=== PATIENT | male | born 1955 | race Caucasian/White ===

== ENCOUNTER 2016-09-18 00:12 | Emergency (ER) | payer OTHER ==
[2016-09-18] MEDS ORDERED: Sodium Chloride 0.9% 5 ML Syringe FLUSH PRN (00:59)
[2016-09-18] MEDS ORDERED: Sodium Chloride 0.9% 1,000 ML IV ONE (00:59)
[2016-09-18] MEDS ORDERED: Famotidine 20 MG/2 ML SDV IVPUSH ONE (00:59)
[2016-09-18] MEDS ORDERED: diphenhydrAMINE 50 MG/ML SDV IVPUSH ONE (00:59)
[2016-09-18] MEDS ORDERED: methylPREDNISolone Sodium Succinate 125 MG/2 ML SDV IVPUSH ONE (00:59)
--- NOTE | 2016-09-18 01:12 | EDM.PDOC ---
ED HPI Allergic Reaction - General Chief Complaint: Allergic Reaction Stated Complaint: swollen lips Time Seen by Provider: 09/18/16 00:58 Source of Information: Reports: Patient History Limitations: Reports: No limitations - History of Present Illness INITIAL COMMENTS - FREE TEXT/NARRATIVE: PT STATES HE DEVELOPED TINGLING IN FACE AND NOTICED LOWER LIP WAS SWOLLEN EARLY THIS EVENING. SEEMS TO BE GETTING WORSE. 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 WAS WEARING HAT AND EYE PROTECTION AT THE TIME. DENIES SOB, THROAT CLOSING SENSATION, N/V, CP, RASH, OR SIMILAR SYMPTOMS IN PAST. Timing/Duration: Reports: Hour(s): Location, Skin: Reports: face Associated features: Reports: swelling Quality: Reports: Itching Severity: mild Known identified source: possible/maybe When: prior to symptom onset Place of Occurrence: work Associated Symptoms: Reports: no other symptoms. Denies: shortness of breath, cough, fever/chills, nausea/vomiting, rash Similar symptoms previously: no Improves with: Reports: None Worsens with: Reports: None Place of Occurrence: Reports: work Suspected Etiology: Reports: cleaning compound Recent Medical Care: no - Related Data Allergies/ADRs: Allergies Allergy/AdvReac Type Severity Reaction Status Date / Time Penicillins Allergy Nausea and Verified 09/18/16 01:12 Vomiting Home Meds: Home Meds Prednisone [IMW: predniSONE] 40 mg PO WITHBREAKFAST #6 tab 09/18/16 [Rx] ED ROS ALLERGIC REACTION - Review of Systems Review Of Systems: ROS reveals no pertinent complaints other than HPI. Constitutional: Reports: no symptoms HEENT: Reports: Other (LOWER LIP EDEMA). Denies: Throat pain, Throat swelling Respiratory: Denies: Shortness of Breath, Wheezing Cardiovascular: Reports: No symptoms Endocrine: Reports: no symptoms GI/Abdominal: Reports: No symptoms : Reports: no symptoms Musculoskeletal: Reports: no symptoms Skin: Reports: no symptoms Neurological: Reports: No Symptoms Psychiatric: Reports: No symptoms Hematologic/Lymphatic: Reports: no symptoms Immunologic: Reports: no symptoms ED EXAM GENERAL NO PERIP PULSE - Physical Exam Exam: See Below Exam Limited By: No limitations General Appearance: alert, WD/WN, no apparent distress Eye Exam: bilateral eye: normal inspection Ears: normal external exam Nose: normal inspection, normal mucosa, no blood Throat/Mouth: Normal oropharynx, No airway compromise, Inflammation (LOWER LIP) , Other (NO TONGUE EDEMA). No: Normal lips Head: atraumatic, normocephalic Neck: normal inspection, supple, non-tender. No: lymphadenopathy (L), lymphadenopathy (R) Respiratory/Chest: no respiratory distress, lungs clear, normal breath sounds, no accessory muscle use, other (NO STRIDER NOTED) Cardiovascular: regular rate, rhythm, no murmur GI/Abdominal: normal bowel sounds, soft, non tender Extremities: normal inspection, no pedal edema Neurological: alert, oriented, normal cognition Psychiatric: normal affect, normal mood Skin Exam: Warm, Dry, Intact, Normal color, No rash Lymphatic: no adenopathy Course - Orders/Labs/Meds Orders: Active Orders 24 hr Category Date Time Status Peripheral IV Care [RC] . DIRECTED Care 09/18/16 00:59 Active Sodium Chloride 0.9% [Normal Saline] 1,000 ml Med 09/18/16 00:59 Active IV .BOLUS Sodium Chloride 0.9% [Syrex Flush] Med 09/18/16 00:59 Active 5 ml FLUSH Q8HR PRN Peripheral IV Insertion Adult [OM.PC] Routine Oth 09/18/16 00:59 Ordered Medication Orders Sodium Chloride (Normal Saline) 1,000 mls @ 999 mls/hr IV .BOLUS ONE Stop: 09/18/16 01:59 Sodium Chloride (Syrex Flush) 5 ml FLUSH Q8HR PRN PRN Reason: Keep Vein Open Meds: Medications Generic Name Dose Route Start Last Admin Trade Name Freq PRN Reason Stop Dose Admin Sodium Chloride 1,000 mls @ 999 mls/hr 09/18/16 00:59 Normal Saline IV 09/18/16 01:59 .BOLUS ONE Sodium Chloride 5 ml 09/18/16 00:59 Syrex Flush FLUSH Q8HR PRN Keep Vein Open Discontinued Medications Generic Name Dose Route Start Last Admin Trade Name Freq PRN Reason Stop Dose Admin Diphenhydramine HCl 50 mg 09/18/16 00:59 Benadryl IVPUSH 09/18/16 01:00 ONETIME ONE Famotidine 20 mg 09/18/16 00:59 Pepcid IVPUSH 09/18/16 01:00 ONETIME ONE Methylprednisolone Sodium Succinate 125 mg 09/18/16 00:59 Solu-Medrol IVPUSH 09/18/16 01:00 ONETIME ONE - Re-Assessments/Exams Free Text/Narrative Re-Assessment/Exam: 09/18/16 02:13 PT AFEBRILE, NONTOXIC APPEARING, VSS, LIP SWELLING DECREASED, NO RASH OR STRIDOR , BBS CLEAR, FEELS BETTER. 09/18/16 02:16 Departure - Departure Time of Disposition: 02:14 Disposition: Home, Self-Care 01 Condition: good Clinical Impression: Allergic reaction to chemical substance Qualifiers: Encounter type: initial encounter Injury intent: accidental or unintentional Qualified Code(s): T65.91XA - Toxic effect of unspecified substance, accidental (unintentional), initial encounter Angio-edema Qualifiers: Encounter type: initial encounter Qualified Code(s): T78.3XXA - Angioneurotic edema, initial encounter Instructions: Angioedema, [id number] Forms: ED Department Discharge Additional Instructions: FOLLOW UP WITH PCP IN 1-2 DAYS. RETURN TO ER SOONER IF SYMPTOMS CONTINUE OR WORSEN - My Orders Last 24 Hours: My Active Orders 09/18/16 00:59 Peripheral IV Care [RC] . DIRECTED Sodium Chloride 0.9% [Normal Saline] 1,000 ml IV .BOLUS Sodium Chloride 0.9% [Syrex Flush] 5 ml FLUSH Q8HR PRN Peripheral IV Insertion Adult [OM.PC] Routine - Assessment/Plan Last 24 Hours: My Active Orders 09/18/16 00:59 Peripheral IV Care [RC] . DIRECTED Sodium Chloride 0.9% [Normal Saline] 1,000 ml IV .BOLUS Sodium Chloride 0.9% [Syrex Flush] 5 ml FLUSH Q8HR PRN Peripheral IV Insertion Adult [OM.PC] Routine
[2016-09-18 09:10] VITALS: BP 151/81
== END 2016-09-18 02:30 | disposition home or self-care (01) ==
LOC: KA.ED 00:12
DX: T78.3XXA Angioneurotic edema, initial encounter (principal); T65.91XA Toxic effect of unspecified substance, accidental (unintentional), initial encounter; Z88.0 Allergy status to penicillin
CPT/HCPCS: 96361; 96374; 96375; 99283; J1200; J2930; J7030; S0028

== ENCOUNTER 2017-10-23 13:36 | Emergency (ER) | payer OTHER ==
[2017-10-23 14:02] VITALS: BP 137/93
[2017-10-23] MEDS ORDERED: Lidocaine 1% 20 ML MDV ONE (14:20)
[2017-10-23] MEDS ORDERED: Lidocaine 2% with EPINEPHrine 1:200,000 20 ML SDV ONE (14:20)
[2017-10-23] MEDS ORDERED: Bacitracin/Neomycin/Polymyxin B Oint 0.9 GM U/D Packet ONE (14:21)
[2017-10-23] MEDS ORDERED: Diphtheria,Pertussis(Acell),Tetanus Vaccine 0.5 ML SDV IM ONE (14:30)
--- NOTE | 2017-10-23 14:35 | EDM.PDOC ---
ED HPI GENERAL MEDICAL PROBLEM - General Chief Complaint: Head Injury Stated Complaint: HEAD INJURY Time Seen by Provider: 10/23/17 14:30 Source of Information: Reports: Patient History Limitations: Reports: No Limitations - History of Present Illness INITIAL COMMENTS - FREE TEXT/NARRATIVE: Patient is a 62-year-old gentleman who presents to the emergency department this afternoon with a complaint of laceration to scalp. Patient states that he was working under equipment and accidentally struck head on corner of type. Patient states that he did not lose consciousness, and denies nausea, vomiting, blurry vision, on anticoagulation therapy, or has neck pain. Onset: Today Onset Date: 10/23/17 Onset Time: 13:30 Duration: Minutes: Location: Reports: Head Quality: Reports: Ache Severity: Mild Improves with: Reports: None Worsens with: Reports: None Context: Reports: Trauma Associated Symptoms: Reports: No Other Symptoms Head Pain Score (Numeric/FACES): 4 - Related Data Allergies Allergy/AdvReac Type Severity Reaction Status Date / Time Penicillins Allergy Nausea and Verified 10/23/17 14:05 Vomiting Home Meds: Home Meds Aspirin 81 mg PO DAILY 10/23/17 [History] Past Medical History HEENT History: Reports: Hard of Hearing, Impaired Vision Respiratory History: Reports: Asthma Musculoskeletal History: Reports: Arthritis, Back Pain, Chronic Dermatologic History: Reports: Other (See Below) Other Dermatologic History: head laceration - Past Surgical History HEENT Surgical History: Reports: None Respiratory Surgical History: Reports: None Social & Family History - Tobacco Use Smoking Status *Q: Never Smoker - Caffeine Use Caffeine Use: Reports: Coffee - Recreational Drug Use Recreational Drug Use: No ED ROS GENERAL - Review of Systems Review Of Systems: ROS reveals no pertinent complaints other than HPI. Constitutional: Reports: No Symptoms HEENT: Reports: Other (Scalp laceration) Respiratory: Reports: No Symptoms Cardiovascular: Reports: No Symptoms Endocrine: Reports: No Symptoms GI/Abdominal: Reports: No Symptoms : Reports: No Symptoms Musculoskeletal: Reports: No Symptoms Skin: Reports: Wound (Scalp laceration) Neurological: Reports: No Symptoms Psychiatric: Reports: No Symptoms Hematologic/Lymphatic: Reports: No Symptoms Immunologic: Reports: No Symptoms ED EXAM, HEAD INJURY - Physical Exam Exam: See Below Exam Limited By: No Limitations General Appearance: Alert, WD/WN, No Apparent Distress Head: Scalp Lacerations (5 cm linear without bogginess or depression). No: Scalp Hematoma, Active Bleeding, Valdes's Sign Nexus Criteria: No: Posterior, Midline Cervical Tenderness, Evidence of Intoxication, Altered Level of Consciousness, Focal Neurological Deficit, Painful Distraction Injuries Eyes: Bilateral Eye: Normal Inspection Ears: Normal External Exam, Normal Canal, Normal TMs Nose: Normal Inspection, No Blood Throat/Mouth: Normal Inspection, Normal Oropharynx, No Airway Compromise Neck: Non-Tender, Full Range of Motion, Normal Alignment, Normal Inspection Respiratory: No Respiratory Distress Back Exam: Normal Inspection Extremities: Normal Inspection Neurologic: No Motor/Sensory Deficits, Normal Mood/Affect, Oriented x 3 Skin: Normal Color, Warm/Dry - Huntington Coma Score Huntington Total: 15 ED LACERATION/WOUND & SILVESTRE PROC - Laceration/Wound Repair [place] Head Lac/wound length in cm: 5 Appearance: Superficial Distal NVT: Neuro & Vascular Intact Anesthetic Type: Local Local Anesthesia - Lidocaine (Xylocaine): 2% with EPI Local Anesthetic Volume: 2cc Skin Prep: Providone-Iodine (Betadine) Closed with: [place] Sterile Dressing Applied: Nurse Tetanus Status Addressed: Yes Complications: No Course - Vital Signs Last Recorded V/S: Last Vital Signs Temp 96.8 F 10/23/17 13:58 Pulse 71 10/23/17 13:58 Resp 20 10/23/17 13:58 BP 137/93 H 10/23/17 13:58 Pulse Ox 94 L 10/23/17 13:58 - Orders/Labs/Meds Orders: Active Orders 24 hr Category Date Time Status Vaccines to be Administered [RC] PER UNIT ROUTINE Care 10/23/17 14:30 Ordered Diphth,Pertuss(Acell),Tet Vac [Adacel] Med 10/23/17 14:30 Once 0.5 ml IM .ONCE ONE Meds: Medications Discontinued Medications Generic Name Dose Route Start Last Admin Trade Name Freq PRN Reason Stop Dose Admin Lidocaine HCl Confirm 10/23/17 14:20 Xylocaine 1% Administered 10/23/17 14:21 Dose 20 ml .ROUTE .STK-MED ONE Lidocaine/Epinephrine Confirm 10/23/17 14:20 Xylocaine-Mpf 2%-Epi 1:200,000 Administered 10/23/17 14:21 Dose 20 ml .ROUTE .STK-MED ONE Neomycin/Polymyxin/Bacitracin Confirm 10/23/17 14:21 Triple Antibiotic Oint Administered 10/23/17 14:22 Dose 1 each .ROUTE .STK-MED ONE - Re-Assessments/Exams Free Text/Narrative Re-Assessment/Exam: 10/23/17 14:35 Patient afebrile, nontoxic appearing, vital signs stable. Patient tolerated procedure well. 11 german were placed and patient will return in 10 days for staple removal. Head Injury precautions was verbally discussed with patient. 10/23/17 14:35 Departure - Departure Time of Disposition: 14:36 Disposition: Home, Self-Care 01 Condition: Good Clinical Impression: Scalp laceration - Discharge Information Instructions: Facial or Scalp Contusion, [id number], Laceration Care, Adult, [id number], Stitches, German, or Adhesive Wound Closure, [id number] Referrals: Ramirez Bishop PA-C [Primary Care Provider] - Additional Instructions: Follow-up at [facility] in 10 days for staple removal. Return to the emergency department sooner if symptoms continue or worsen. - My Orders Last 24 Hours: My Active Orders 10/23/17 14:30 Vaccines to be Administered [RC] PER UNIT ROUTINE Diphth,Pertuss(Acell),Tet Vac [Adacel] 0.5 ml IM .ONCE ONE - Assessment/Plan Last 24 Hours: My Active Orders 10/23/17 14:30 Vaccines to be Administered [RC] PER UNIT ROUTINE Diphth,Pertuss(Acell),Tet Vac [Adacel] 0.5 ml IM .ONCE ONE Assessment:: Scalp laceration Plan: Follow-up at [facility] in 10 days for staple removal.
== END 2017-10-23 14:45 | disposition home or self-care (01) ==
LOC: KA.ED 13:36
DX: S01.01XA Laceration without foreign body of scalp, initial encounter (principal); J45.909 Unspecified asthma, uncomplicated; Z23 Encounter for immunization; Z79.82 Long term (current) use of aspirin; Z88.0 Allergy status to penicillin; W22.8XXA Striking against or struck by other objects, initial encounter
CPT/HCPCS: 12002; 90471; 90715; 99283

== ENCOUNTER 2019-02-11 10:42 | Emergency (ER) | payer OTHER, BC ==
[2019-02-11] MEDS ORDERED: Famotidine 20 MG/2 ML SDV IVPUSH ONE (11:00)
[2019-02-11] MEDS ORDERED: methylPREDNISolone Sodium Succinate 125 MG/2 ML SDV IVPUSH ONE (11:00)
[2019-02-11] MEDS ORDERED: diphenhydrAMINE 50 MG/ML SDV IVPUSH ONE (11:00)
[2019-02-11] MEDS ORDERED: Sodium Chloride 0.9% 10 ML Syringe FLUSH PRN (11:00)
--- NOTE | 2019-02-11 11:01 | EDM.PDOC ---
ED HPI GENERAL MEDICAL PROBLEM - General Chief Complaint: Allergic Reaction Stated Complaint: TONGUE/LIP SWELLING Time Seen by Provider: 02/11/19 10:45 Source of Information: Reports: Patient History Limitations: Reports: No Limitations - History of Present Illness INITIAL COMMENTS - FREE TEXT/NARRATIVE: 63 YO WM presents to ER complaining of swelling to lower lip which reoccurred this am. Pt reports he's been having lower lip swelling on/off over the last month. Pt has been seen and evaluated 2 times prior to today for same complaint. Pt denies any home medications other than aspirin and denies knowledge of any allergies. Pt denies dysphagia, shortness of breath, tongue swelling or sore throat. Pt denies fever/chills, nausea/vomiting or recent illnesses. Duration: Week(s): (3), Recurring Location: Reports: Face Quality: Reports: Pressure Severity: Mild Improves with: Reports: Medication Worsens with: Reports: None Associated Symptoms: Reports: No Other Symptoms Face/Facial Pain Score (Numeric/FACES): 3 - Related Data Allergies Allergy/AdvReac Type Severity Reaction Status Date / Time Penicillins Allergy Nausea and Verified 02/11/19 10:49 Vomiting Home Meds: Home Meds Calcium Carbonate [Tums Extra Strength] 750 mg PO DAILY PRN 12/19/18 [History] Multivitamin [Multi-Vitamin Daily] 1 each PO DAILY 12/19/18 [History] Aspirin [Aspirin EC] 162 mg PO BID 02/11/19 [History] Cetirizine [ZyrTEC] 10 mg PO DAILY #30 tab 02/11/19 [Rx] Famotidine [Pepcid] 20 mg PO BID #10 tab 02/11/19 [Rx] Loratadine [Claritin] 10 mg PO DAILY 02/11/19 [History] diphenhydrAMINE [Benadryl] 50 mg PO ASDIRECTED PRN 02/11/19 [History] predniSONE 20 mg PO WITHBREAKFAST #15 tab 02/11/19 [Rx] Past Medical History HEENT History: Reports: Hard of Hearing, Impaired Vision Respiratory History: Reports: Asthma Musculoskeletal History: Reports: Arthritis, Back Pain, Chronic Dermatologic History: Reports: Other (See Below) Other Dermatologic History: head laceration - Past Surgical History HEENT Surgical History: Reports: None Respiratory Surgical History: Reports: None Social & Family History - Caffeine Use Caffeine Use: Reports: Coffee ED ROS ALLERGIC REACTION - Review of Systems Review Of Systems: See Below Constitutional: Reports: No Symptoms HEENT: Denies: Rhinitis, Throat Pain, Throat Swelling Respiratory: Reports: No Symptoms Cardiovascular: Reports: No Symptoms Endocrine: Reports: No Symptoms GI/Abdominal: Reports: No Symptoms : Reports: No Symptoms Musculoskeletal: Reports: No Symptoms Skin: Reports: No Symptoms Neurological: Reports: No Symptoms Psychiatric: Reports: No Symptoms Hematologic/Lymphatic: Reports: No Symptoms Immunologic: Reports: No Symptoms ED EXAM GENERAL NO PERIP PULSE - Physical Exam Exam: See Below Exam Limited By: No Limitations General Appearance: Alert, WD/WN, No Apparent Distress Eye Exam: Bilateral Eye: PERRL Ears: Normal External Exam, Normal Canal, Hearing Grossly Normal, Normal TMs Nose: Normal Inspection, Normal Mucosa, No Blood Throat/Mouth: Normal Teeth, Normal Gums, Normal Oropharynx, Normal Voice, No Airway Compromise. No: Normal Lips (right side of lower lip with mild swelling. ) Head: Atraumatic, Normocephalic Neck: Normal Inspection, Supple, Non-Tender, Full Range of Motion Respiratory/Chest: No Respiratory Distress, Lungs Clear, Normal Breath Sounds, No Accessory Muscle Use, Chest Non-Tender Cardiovascular: Normal Peripheral Pulses, Regular Rate, Rhythm, No Edema, No Gallop, No JVD, No Murmur, No Rub GI/Abdominal: Normal Bowel Sounds, Soft, Non-Tender, No Organomegaly, No Distention, No Abnormal Bruit, No Mass Back Exam: Normal Inspection, Full Range of Motion, NT Extremities: Normal Inspection, Normal Range of Motion, Non-Tender, Normal Capillary Refill, No Pedal Edema Neurological: Alert, Oriented, CN II-XII Intact, Normal Cognition, Normal Gait, Normal Reflexes, No Motor/Sensory Deficits Psychiatric: Normal Affect, Normal Mood Skin Exam: Warm, Dry, Intact, Normal Color, No Rash Lymphatic: No Adenopathy Course - Vital Signs Last Recorded V/S: Last Vital Signs Temp 35.7 C 02/11/19 11:03 Pulse 82 02/11/19 11:03 Resp 16 02/11/19 11:03 BP 156/79 H 02/11/19 11:03 Pulse Ox 97 02/11/19 11:03 - Orders/Labs/Meds Orders: Active Orders 24 hr Category Date Time Status Peripheral IV Care [RC] . DIRECTED Care 02/11/19 11:00 Active Sodium Chloride 0.9% [Saline Flush] Med 02/11/19 11:00 Active 10 ml FLUSH Q8HR PRN Peripheral IV Insertion Adult [OM.PC] Routine Oth 02/11/19 11:00 Ordered Medication Orders Sodium Chloride (Saline Flush) 10 ml FLUSH Q8HR PRN PRN Reason: keep vein open Last Admin: 02/11/19 11:16 Dose: 10 ml Meds: Medications Generic Name Dose Route Start Last Admin Trade Name Freq PRN Reason Stop Dose Admin Sodium Chloride 10 ml 02/11/19 11:00 02/11/19 11:16 Saline Flush FLUSH 10 ml Q8HR PRN Administration keep vein open Discontinued Medications Generic Name Dose Route Start Last Admin Trade Name Freq PRN Reason Stop Dose Admin Diphenhydramine HCl 50 mg 02/11/19 11:00 02/11/19 11:16 Benadryl IVPUSH 02/11/19 11:01 50 mg ONETIME ONE Administration Famotidine 20 mg 02/11/19 11:00 02/11/19 11:12 Pepcid IVPUSH 02/11/19 11:01 20 mg ONETIME ONE Administration Methylprednisolone Sodium Succinate 125 mg 02/11/19 11:00 02/11/19 11:14 Solu-Medrol IVPUSH 02/11/19 11:01 125 mg ONETIME ONE Administration Departure - Departure Time of Disposition: 11:32 Disposition: Home, Self-Care 01 Condition: Good Clinical Impression: Angioedema Qualifiers: Encounter type: initial encounter Qualified Code(s): T78.3XXA - Angioneurotic edema, initial encounter - Discharge Information Prescriptions: Cetirizine [ZyrTEC] 10 mg PO DAILY #30 tab Famotidine [Pepcid] 20 mg PO BID #10 tab predniSONE 20 mg PO WITHBREAKFAST #15 tab Instructions: Angioedema, [id number] Forms: ED Department Discharge Additional Instructions: 1. discharge home 2. prednisone 60mg everyday x 5 days 3. Pepcid 20mg twice a day x 5 days 4. Zyrtec 10mg every day x 5 days 5. follow up in clinic for referral to hand worker 6. return to ER for worsening symptoms - My Orders Last 24 Hours: My Active Orders 02/11/19 11:00 Peripheral IV Care [RC] . DIRECTED Sodium Chloride 0.9% [Saline Flush] 10 ml FLUSH Q8HR PRN Peripheral IV Insertion Adult [OM.PC] Routine - Assessment/Plan Last 24 Hours: My Active Orders 02/11/19 11:00 Peripheral IV Care [RC] . DIRECTED Sodium Chloride 0.9% [Saline Flush] 10 ml FLUSH Q8HR PRN Peripheral IV Insertion Adult [OM.PC] Routine Assessment:: 1. angioedema to lower lip- improved after medication Plan: 1. discharge home 2. prednisone 60mg everyday x 5 days 3. Pepcid 20mg twice a day x 5 days 4. Zyrtec 10mg every day x 5 days 5. follow up in clinic for referral to hand worker 6. return to ER for worsening symptoms
[2019-02-11 11:08] VITALS: BP 156/79
== END 2019-02-11 11:40 | disposition home or self-care (01) ==
LOC: KA.ED 10:42
DX: T78.3XXA Angioneurotic edema, initial encounter (principal); Z79.82 Long term (current) use of aspirin; Z79.899 Other long term (current) drug therapy; M19.90 Unspecified osteoarthritis, unspecified site; Z88.0 Allergy status to penicillin
CPT/HCPCS: 96374; 96375; 99283; J1200; J2930; J3490

== ENCOUNTER 2019-05-26 08:16 | Emergency (ER) | payer BC, OTHER ==
[2019-05-26 08:30] VITALS: BP 145/76; PULSE 75
[2019-05-26] MEDS ORDERED: methylPREDNISolone Sodium Succinate 125 MG/2 ML SDV IVPUSH ONE (08:33)
[2019-05-26] MEDS ORDERED: diphenhydrAMINE 50 MG/ML SDV IVPUSH ONE (08:33)
--- NOTE | 2019-05-26 10:24 | EDM.PDOC ---
ED HPI GENERAL MEDICAL PROBLEM - General Chief Complaint: Allergic Reaction Stated Complaint: ALERGIC REACTION Time Seen by Provider: 05/26/19 08:30 Source of Information: Reports: Patient History Limitations: Reports: No Limitations - History of Present Illness INITIAL COMMENTS - FREE TEXT/NARRATIVE: 63-year-old male presents emergency room this morning with complaints of swelling about his lips. Patient has had a history of angioedema in the past requiring prior emergency room visits. He was seen by avionics system engineer for testing and was started on Singulair. This has reduced the episodes but still has swelling of his lips and tongue periodically. He keeps Benadryl on hand at all times. This recent episode started about 3:00 this morning and he's been taking Benadryl. He noticed that the swelling seemed to be getting worse and his lips. This a prompted him to come to the emergency room. He denies dysphasia, shortness of breath or difficulty breathing. He denies throat tightness, he denies swelling of the tongue. Onset: Today Onset Date: 05/26/19 Onset Time: 03:00 Duration: Hour(s):, Getting Worse Location: Reports: Face Quality: Reports: Other (Tingling) Severity: Moderate Improves with: Reports: Medication (Benadryl) Worsens with: Reports: None Associated Symptoms: Reports: Cough. Denies: Diaphoresis, Shortness of Breath, Weakness Treatments [employer]: Reports: Other Medication(s) - Related Data Allergies Allergy/AdvReac Type Severity Reaction Status Date / Time Penicillins Allergy Nausea and Verified 05/26/19 08:23 Vomiting Home Meds: Home Meds Calcium Carbonate [Tums Extra Strength] 750 mg PO DAILY PRN 12/19/18 [History] Multivitamin [Multi-Vitamin Daily] 1 each PO DAILY 12/19/18 [History] Aspirin [Aspirin EC] 162 mg PO BEDTIME 02/11/19 [History] Cetirizine [ZyrTEC] 10 mg PO DAILY #30 tab 02/11/19 [Rx] diphenhydrAMINE [Benadryl] 50 mg PO ASDIRECTED PRN 02/11/19 [History] Montelukast Sodium 10 mg PO BEDTIME 05/26/19 [History] Past Medical History HEENT History: Reports: Hard of Hearing, Impaired Vision Respiratory History: Reports: Asthma Musculoskeletal History: Reports: Arthritis, Back Pain, Chronic Immunologic History: Reports: Other (See Below) Other Immunologic History: Patient has questionable allergies with lip/tongue/ throat swelling. Dermatologic History: Reports: Angiodema, Other (See Below) Other Dermatologic History: head laceration - Past Surgical History Head Surgeries/Procedures: Reports: None HEENT Surgical History: Reports: None Respiratory Surgical History: Reports: None Social & Family History - Family History Family Medical History: Noncontributory - Caffeine Use Caffeine Use: Reports: Coffee ED ROS ALLERGIC REACTION - Review of Systems Review Of Systems: See Below Constitutional: Reports: No Symptoms HEENT: Denies: Sinus Problem, Throat Pain, Throat Swelling, Vision Change Respiratory: Reports: Cough. Denies: Shortness of Breath, Wheezing, Sputum Cardiovascular: Denies: Chest Pain, Edema, Lightheadedness Endocrine: Reports: No Symptoms GI/Abdominal: Reports: No Symptoms : Reports: No Symptoms Musculoskeletal: Reports: Back Pain (chronic) Skin: Denies: Diaphoresis, Pruritis, Rash, Erythema, Urticaria Neurological: Reports: Tingling (Around his lips). Denies: Confusion, Dizziness , Headache, Trouble Speaking, Weakness, Change in Speech Psychiatric: Reports: No Symptoms Hematologic/Lymphatic: Reports: No Symptoms Immunologic: Reports: Anaphylaxis (history of prior angioedema) ED EXAM GENERAL NO PERIP PULSE - Physical Exam Exam: See Below Exam Limited By: No Limitations General Appearance: Alert, WD/WN, No Apparent Distress Eye Exam: Bilateral Eye: EOMI, PERRL Ears: Normal TMs Nose: Normal Inspection, Normal Mucosa, No Blood. No: Nasal Tenderness, Nasal Swelling, Nasal Drainage, Clear Rhinorrhea Throat/Mouth: Normal Oropharynx, Normal Voice, No Airway Compromise, Other ( Swelling of both the upper and lower lips). No: Dysphagia, Perioral Cyanosis Head: Atraumatic, Normocephalic Neck: Normal Inspection, Supple, Non-Tender, Full Range of Motion Respiratory/Chest: No Respiratory Distress, Lungs Clear, Normal Breath Sounds. No: Crackles, Wheezing, Accessory Muscle Use, Retractions, Splinting Cardiovascular: Normal Peripheral Pulses, Regular Rate, Rhythm, No Murmur GI/Abdominal: Soft, Non-Tender, Other (Obese) Extremities: Normal Inspection, Normal Range of Motion, Normal Capillary Refill Neurological: Alert, Oriented, CN II-XII Intact, Normal Cognition, Normal Gait, No Motor/Sensory Deficits Psychiatric: Normal Affect, Normal Mood Skin Exam: Warm, Dry, Intact, Normal Color, No Rash. No: Diaphoretic, Erythema Lymphatic: No Adenopathy Course - Vital Signs Last Recorded V/S: Last Vital Signs Temp 96.4 F 05/26/19 08:26 Pulse 75 05/26/19 08:26 Resp 18 05/26/19 08:26 BP 145/76 H 05/26/19 08:26 Pulse Ox 96 05/26/19 08:26 - Orders/Labs/Meds Meds: Medications Discontinued Medications Generic Name Dose Route Start Last Admin Trade Name Pacheco PRN Reason Stop Dose Admin Diphenhydramine HCl 50 mg 05/26/19 08:33 05/26/19 08:43 Benadryl IVPUSH 05/26/19 08:34 50 mg ONETIME ONE Administration Ranitidine HCl 50 mg/ Sodium 102 mls @ 340 mls/hr 05/26/19 08:58 05/26/19 09: 10 Chloride IV 05/26/19 09:15 340 mls/hr ONETIME ONE Administration Methylprednisolone Sodium Succinate 125 mg 05/26/19 08:33 05/26/19 08:42 Solu-Medrol IVPUSH 05/26/19 08:34 125 mg ONETIME ONE Administration - Re-Assessments/Exams Free Text/Narrative Re-Assessment/Exam: 05/26/19 10:35 She reports dramatic improvement as well as clinical improvement of his angioedema of his lips. He is not having any shortness of breath. No complaints of dysphasia or throat tightness. He is doing much better. 05/26/19 10:37 Free Text/Narrative Re-Assessment/Exam: 05/26/19 12:46 Patient is resting, doing well. He has no shortness of breath, no difficulty breathing, no dysphasia. His swelling around his lips has improved significantly Departure - Departure Time of Disposition: 12:48 Disposition: Home, Self-Care 01 Condition: Good Clinical Impression: Angioedema of lips Qualifiers: Encounter type: initial encounter Qualified Code(s): T78.3XXA - Angioneurotic edema, initial encounter - Discharge Information Instructions: Angioedema, [id number] Referrals: Stephanie Wheat PA-C [Primary Care Provider] - Forms: ED Department Discharge - Assessment/Plan Assessment:: Angioedema to the lips Plan: Inpatient 1. Benadryl 50 mg IV 2. Solu-Medrol 150 mg IV 3. Zantac 50 mg IV Discharge 1. Prednisone 60 mg daily 5 days. 2. Zantac 150 mg by mouth twice a day 5 days. 3. Singulair 10 mg by mouth daily. 4. Benadryl 25-50 mg 1-2 by mouth every 6 hours when necessary. 5. Follow-up with avionics system engineer next week with your regular scheduled appointment. 6. Return to the emergency room if symptoms of angioedema, dysphasia, difficulty breathing. 7. Epipen for severe angioedema.
== END 2019-05-26 13:00 | disposition home or self-care (01) ==
LOC: KA.ED 08:16
DX: T78.3XXA Angioneurotic edema, initial encounter (principal); J45.909 Unspecified asthma, uncomplicated; Z79.82 Long term (current) use of aspirin; Z79.899 Other long term (current) drug therapy; Z88.0 Allergy status to penicillin
CPT/HCPCS: 96374; 96375; 99282-25; J1200; J2780; J2930; J7050

== ENCOUNTER 2019-09-11 17:02 | Emergency (ER) | payer BC ==
[2019-09-11 17:37] VITALS: BP 155/88; PULSE 88
--- NOTE | 2019-09-11 17:44 | EDM.PDOC ---
ED HPI GENERAL MEDICAL PROBLEM - General Chief Complaint: Gastrointestinal Problem Stated Complaint: STOMACH PAIN Time Seen by Provider: 09/11/19 17:15 Source of Information: Reports: Patient History Limitations: Reports: No Limitations - History of Present Illness INITIAL COMMENTS - FREE TEXT/NARRATIVE: 64 YO WM presents to ER complaining of generalized abdominal pain x 2 days. Pt reports pain started last night in his lower abdomen and resolved. Pt reports he woke this am with some mild discomfort but was able to eat breakfast and go to work. Pt reports he was leaning over a vehicle at work and developed pain again prompting ER visit. Pt also reports URI symptoms- cough, nasal congestion and mild fatigue. Pt denies fever/chills, nonproductive cough and no shortness of breath or chest pain. Pt denies travel or any known sick exposures. Pt reports taking Sudafed for cough with improvement. Pt reports good appetite. Pt denies abdominal pain currently. Pt reports he's stomach is sore with coughing. Onset Date: 09/10/19 Duration: Day(s): (2) Location: Reports: Abdomen Quality: Reports: Ache Severity: Mild Improves with: Reports: None Worsens with: Reports: None Associated Symptoms: Reports: No Other Symptoms, Cough, Malaise. Denies: Chest Pain, cough w sputum, Fever/Chills, Headaches, Loss of Appetite, Nausea/Vomiting , Rash, Shortness of Breath, Syncope, Weakness nabila umbilical Pain Score (Numeric/FACES): 4 - Related Data Allergies Allergy/AdvReac Type Severity Reaction Status Date / Time Penicillins Allergy Nausea and Verified 09/11/19 17:41 Vomiting Home Meds: Home Meds Calcium Carbonate [Tums Extra Strength] 750 mg PO DAILY PRN 12/19/18 [History] Multivitamin [Multi-Vitamin Daily] 1 each PO DAILY 12/19/18 [History] Aspirin [Aspirin EC] 81 mg PO BID 02/11/19 [History] Cetirizine [ZyrTEC] 10 mg PO DAILY #30 tab 02/11/19 [Rx] diphenhydrAMINE [Benadryl] 50 mg PO ASDIRECTED PRN 02/11/19 [History] Montelukast Sodium 10 mg PO BEDTIME 05/26/19 [History] Albuterol Sulfate [Albuterol Sulfate Hfa] 8.5 gm IH Q4HR #1 hfa.aer.ad 09/11/19 [Rx] Azithromycin [Zithromax] 250 mg PO DAILY #5 tablet 09/11/19 [Rx] Past Medical History HEENT History: Reports: Hard of Hearing, Impaired Vision Respiratory History: Reports: Asthma Musculoskeletal History: Reports: Arthritis, Back Pain, Chronic Immunologic History: Reports: Other (See Below) Other Immunologic History: Patient has questionable allergies with lip/tongue/ throat swelling. Dermatologic History: Reports: Angiodema, Other (See Below) Other Dermatologic History: head laceration - Past Surgical History Head Surgeries/Procedures: Reports: None HEENT Surgical History: Reports: None Respiratory Surgical History: Reports: None Social & Family History - Family History Family Medical History: Noncontributory - Caffeine Use Caffeine Use: Reports: Coffee ED ROS GENERAL - Review of Systems Review Of Systems: See Below Constitutional: Reports: Malaise HEENT: Reports: Rhinitis Respiratory: Reports: Cough Cardiovascular: Reports: No Symptoms Endocrine: Reports: No Symptoms GI/Abdominal: Reports: Abdominal Pain : Reports: No Symptoms Musculoskeletal: Reports: No Symptoms Skin: Reports: No Symptoms Neurological: Reports: No Symptoms Psychiatric: Reports: No Symptoms Hematologic/Lymphatic: Reports: No Symptoms Immunologic: Reports: No Symptoms ED EXAM, GI/ABD - Physical Exam Exam: See Below Exam Limited By: No Limitations General Appearance: Alert, WD/WN, No Apparent Distress Nose: Normal Mucosa, No Blood, Clear Rhinorrhea Throat/Mouth: Normal Inspection, Normal Lips, Normal Teeth, Normal Gums, Normal Oropharynx, Normal Voice, No Airway Compromise Head: Atraumatic, Normocephalic Neck: Normal Inspection, Supple, Non-Tender, Full Range of Motion Respiratory/Chest: No Respiratory Distress, Lungs Clear, Normal Breath Sounds, No Accessory Muscle Use, Chest Non-Tender Cardiovascular: Normal Peripheral Pulses, Regular Rate, Rhythm, No Edema, No Gallop, No JVD, No Murmur, No Rub GI/Abdominal Exam: Normal Bowel Sounds, Soft, Non-Tender, No Organomegaly, No Distention, No Abnormal Bruit, No Mass, Pelvis Stable Back Exam: Normal Inspection, Full Range of Motion, NT Extremities: Normal Inspection, Normal Range of Motion, Non-Tender, Normal Capillary Refill, No Pedal Edema Neurological: Alert, Oriented, CN II-XII Intact, Normal Cognition, Normal Gait, Normal Reflexes, No Motor/Sensory Deficits Psychiatric: Normal Affect, Normal Mood Skin Exam: Warm, Dry, Intact, Normal Color, No Rash Lymphatic: No Adenopathy Course - Vital Signs Last Recorded V/S: Last Vital Signs Temp 37.0 C 09/11/19 17:05 Pulse 88 09/11/19 17:05 Resp 20 09/11/19 17:05 BP 155/88 H 09/11/19 17:05 Pulse Ox 95 09/11/19 17:05 - Orders/Labs/Meds Orders: Active Orders 24 hr Category Date Time Status Peripheral IV Care [RC] . DIRECTED Care 09/11/19 17:32 Ordered Sodium Chloride 0.9% [Saline Flush] Med 09/11/19 17:31 Ordered 10 ml FLUSH Q8HR PRN cefTRIAXone [Rocephin] Med 09/11/19 18:21 Once 1 gm IVPUSH ONETIME ONE Isolation [COMM] Routine Oth 09/11/19 17:48 Ordered Peripheral IV Insertion Adult [OM.PC] Routine Oth 09/11/19 17:31 Ordered Medication Orders Sodium Chloride (Saline Flush) 10 ml FLUSH Q8HR PRN PRN Reason: keep vein open Labs: Laboratory Tests 09/11/19 09/11/19 09/11/19 Range/Units 17:25 17:25 17:25 WBC 9.01 (5.00-10.00) 10^3/uL RBC 5.39 (4.50-6.00) 10^6/uL Hgb 16.1 (13.0-17.0) g/dL Hct 47.2 (40.0-52.0) % MCV 87.6 (82.0-92.0) fL MCH 29.9 (27.0-31.0) pg MCHC 34.1 (32.0-36.0) g/dL RDW 12.4 (11.5-14.5) % Plt Count 279 (150-400) 10^3/uL MPV 8.8 (7.4-10.4) fL Immature Gran % (Auto) 0.1 (0.0-5.0) % Neut % (Auto) 68.1 (50.0-70.0) % Lymph % (Auto) 17.4 L (20.0-40.0) % Wright % (Auto) 10.3 H (2.0-8.0) % Eos % (Auto) 3.4 H (1.0-3.0) % Baso % (Auto) 0.7 (0.0-1.0) % Immature Gran # (Auto) 0.01 (0.00-0.50) 10^3/uL Neut # (Auto) 6.13 (2.50-7.00) 10^3/uL Lymph # (Auto) 1.57 (1.00-4.00) 10^3/uL Wright # (Auto) 0.93 H (0.10-0.80) 10^3/uL Eos # (Auto) 0.31 H (0.10-0.30) 10^3/uL Baso # (Auto) 0.06 (0.00-0.10) 10^3/uL Sodium 139 (136-145) mmol/L Potassium 4.3 (3.3-5.3) mmol/L Chloride 101 (98-115) mmol/L Carbon Dioxide 25.7 (21.0-32.0) mmol/L Anion Gap 16.6 H (5-15) mmol/L BUN 12 (6-25) mg/dL Creatinine 1.07 (0.51-1.17) mg/dL Est Cr Clr Drug Dosing 75.55 mL/min Estimated GFR (MDRD) > 60 mL/min Glucose 101 H (75 - 99) mg/dL Calcium 8.9 (8.7-10.3) mg/dL Total Bilirubin 0.6 (0.2-1.0) mg/dL AST 27 (15-37) U/L ALT 28 (12-78) U/L Alkaline Phosphatase 105 (46-116) IU/L Total Protein 7.3 (6.4-8.2) g/dL Albumin 3.98 (3.00-4.80) g/dL Lipase 89 (73-393) U/L Specimen Type Urinvoid Urine Color Yellow (YELLOW) Urine Appearance Clear (CLEAR) Urine pH 5.5 (5.0-9.0) Ur Specific [place] 1.015 (1.005-1.030) Urine Protein Negative (NEGATIVE) mg/dL Urine Glucose (UA) Negative (NEGATIVE) mg/dL Urine Ketones Negative (NEGATIVE) mg/dL Urine Occult Blood Negative (NEGATIVE) Urine Nitrite Negative (NEGATIVE) Urine Bilirubin Negative (NEGATIVE) Urine Urobilinogen 0.2 (0.2-1.0) E.U./dL Ur Leukocyte Esterase Negative (NEGATIVE) Urine RBC 0-5 (0-5) /HPF Urine WBC 0-5 (0-5) /HPF Ur Epithelial Cells Rare /LPF Urine Bacteria Not seen (NONE TO FEW) /HPF Urine Mucus Many H (NEGATIVE) /LPF Meds: Medications Generic Name Dose Route Start Last Admin Trade Name Freq PRN Reason Stop Dose Admin Sodium Chloride 10 ml 09/11/19 17:31 Saline Flush FLUSH Q8HR PRN keep vein open - Radiology Interpretation Free Text/Narrative:: CXR- linear opacifications most pronounced within the lung bases bilaterally. possible pneumonia - Re-Assessments/Exams Free Text/Narrative Re-Assessment/Exam: 09/11/19 18:25 Pt denies shortness of breath/difficulty breathing, no fever/chills, nontoxic, no cough while in ER; benign abdominal exam. Pt comfortable with treatment plan and will return for worsening symptoms Departure - Departure Time of Disposition: 18:25 Disposition: Home, Self-Care 01 Condition: Good Clinical Impression: Pneumonia Qualifiers: Laterality: bilateral Lung location: lower lobe of lung Abdominal pain Qualifiers: Abdominal location: generalized Qualified Code(s): R10.84 - Generalized abdominal pain - Discharge Information Prescriptions: Albuterol Sulfate [Albuterol Sulfate Hfa] 8.5 gm IH Q4HR #1 hfa.aer.ad Azithromycin [Zithromax] 250 mg PO DAILY #5 tablet Instructions: Community-Acquired Pneumonia, Adult, Abdominal Pain, Adult, Easy- to-Read Referrals: Stephanie Wheat PA-C [Primary Care Provider] - Forms: ED Department Discharge Additional Instructions: 1. discharge home 2. rocephin 1g IV now 3. zpak as directed/zyrtec 10mg daily 4. albuterol inhaler Q4 hours and PRN 5. follow up in clinic next 48 hours for recheck 6. return to ER for worsening symptoms Sepsis Event Note - Focused Exam Vital Signs: Vital Signs Temp Pulse Resp BP Pulse Ox 09/11/19 17:05 37.0 C 88 20 155/88 H 95 Date Exam was Performed: 09/11/19 Time Exam was Performed: 18:22 - My Orders Last 24 Hours: My Active Orders 09/11/19 17:31 Sodium Chloride 0.9% [Saline Flush] 10 ml FLUSH Q8HR PRN Peripheral IV Insertion Adult [OM.PC] Routine 09/11/19 17:32 Peripheral IV Care [RC] . DIRECTED 09/11/19 17:48 Isolation [COMM] Routine 09/11/19 18:21 cefTRIAXone [Rocephin] 1 gm IVPUSH ONETIME ONE - Assessment/Plan Last 24 Hours: My Active Orders 09/11/19 17:31 Sodium Chloride 0.9% [Saline Flush] 10 ml FLUSH Q8HR PRN Peripheral IV Insertion Adult [OM.PC] Routine 09/11/19 17:32 Peripheral IV Care [RC] . DIRECTED 09/11/19 17:48 Isolation [COMM] Routine 09/11/19 18:21 cefTRIAXone [Rocephin] 1 gm IVPUSH ONETIME ONE Assessment:: 1. pneumonia bibasilar vs acute bronchitis Plan: 1. discharge home 2. rocephin 1g IV now 3. zpak as directed/zyrtec 10mg daily 4. albuterol inhaler Q4 hours and PRN 5. follow up in clinic next 48 hours for recheck 6. return to ER for worsening symptoms
[2019-09-11 17:58] LABS: ANION GAP 16.6 mmol/L (5-15); CHLORIDE,CL 101 mmol/L (98-115); SODIUM,NA 139 mmol/L (136-145)
--- NOTE | 2019-09-11 18:16 | CR ---
[id number] RAD/RAD Chest PA And Lateral EXAM: RAD Chest PA And Lateral INDICATION: COUGH. COMPARISON: None. DISCUSSION: Cardiomediastinal silhouette is normal in size and contour. Linear opacifications most pronounced within the lung bases bilaterally. No pneumothorax or pleural effusion. IMPRESSION: Linear opacifications most pronounced within the lung bases bilaterally. Developing infiltrates are not excluded. Arash Humphreys DO 09/11/19 1815 Thank you for allowing us to participate in the care of your patient.
[2019-09-11] MEDS: cefTRIAXone 1 GM Vial IVPUSH ONE (18:23)
[2019-09-11] MEDS: Sodium Chloride 0.9% 10 ML Syringe FLUSH PRN (18:27)
[2019-09-11] MEDS: cefTRIAXone 1 GM Vial ONE (18:28)
== END 2019-09-11 18:47 | disposition home or self-care (01) ==
LOC: KA.ED 17:02
DX: R10.84 Generalized abdominal pain (principal); J18.9 Pneumonia, unspecified organism; J45.909 Unspecified asthma, uncomplicated; M19.90 Unspecified osteoarthritis, unspecified site; Z88.0 Allergy status to penicillin; Z79.82 Long term (current) use of aspirin; Z79.899 Other long term (current) drug therapy
CPT/HCPCS: 71046; 80053; 81001; 83690; 85025; 87804; 96374; 99284; J0696

== ENCOUNTER 2019-09-21 09:08 | Emergency (ER) | payer BC, OTHER ==
[2019-09-21] MEDS ORDERED: Famotidine 20 MG/2 ML SDV IVPUSH ONE (09:28)
[2019-09-21] MEDS ORDERED: Sodium Chloride 0.9% 10 ML Syringe FLUSH PRN (09:28)
[2019-09-21] MEDS ORDERED: diphenhydrAMINE 50 MG/ML SDV IVPUSH ONE (09:28)
[2019-09-21] MEDS ORDERED: methylPREDNISolone Sodium Succinate 125 MG/2 ML SDV IVPUSH ONE (09:28)
[2019-09-21] MEDS ORDERED: Sodium Chloride 0.9% 1,000 ML IV ONE (09:28)
--- NOTE | 2019-09-21 09:29 | EDM.PDOC ---
ED HPI GENERAL MEDICAL PROBLEM - General Chief Complaint: ENT Problem Stated Complaint: TONGUE SWELLING Time Seen by Provider: 09/21/19 09:29 Source of Information: Reports: Patient History Limitations: Reports: No Limitations - History of Present Illness INITIAL COMMENTS - FREE TEXT/NARRATIVE: 64 YO WM presents to ER complaining of swelling to right side of tongue which began this am. Pt reports he's been having lower lip swelling on/off over the last year, with some tongue involvement in the past. Pt reports his lower lip swelled earlier in the week but resolved 2 days ago. Pt has been seen and evaluated multiple times prior to today for same complaint. Pt denies any home medications other than aspirin and Nyquil for mild URI symptoms. Pt denies knowledge of any known allergies other than PCN. Pt denies dysphagia, shortness of breath, dysphagia, throat swelling or sore throat. Pt denies fever/chills, nausea/vomiting or chest pain. 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 (see below) (benadryl) Oral/Mouth Pain Score (Numeric/FACES): 3 - Related Data Allergies Allergy/AdvReac Type Severity Reaction Status Date / Time Penicillins Allergy Nausea and Verified 09/11/19 17:41 Vomiting Home Meds: Home Meds Calcium Carbonate [Tums Extra Strength] 750 mg PO DAILY PRN 12/19/18 [History] Multivitamin [Multi-Vitamin Daily] 1 each PO DAILY 12/19/18 [History] Aspirin [Aspirin EC] 81 mg PO BID 02/11/19 [History] diphenhydrAMINE [Benadryl] 50 mg PO ASDIRECTED PRN 02/11/19 [History] Albuterol Sulfate [Albuterol Sulfate Hfa] 8.5 gm IH Q4HR #1 [id number].[id number] 09/11/19 [Rx] EPINEPHrine [Epinephrine] 0.3 mg IM DAILY PRN 09/21/19 [History] Famotidine [Pepcid] 20 mg PO BID #10 tab 09/21/19 [Rx] guaiFENesin [Tussin] 200 mg PO Q4H PRN 09/21/19 [History] predniSONE [Prednisone] 20 mg PO DAILY #15 tablet 09/21/19 [Rx] Past Medical History HEENT History: Reports: Hard of Hearing, Impaired Vision Cardiovascular History: Reports: None Respiratory History: Reports: Asthma Gastrointestinal History: Reports: None Genitourinary History: Reports: None Musculoskeletal History: Reports: Arthritis, Back Pain, Chronic Neurological History: Reports: None Psychiatric History: Reports: None Endocrine/Metabolic History: Reports: Obesity/BMI 30+ Hematologic History: Reports: None Immunologic History: Reports: Other (See Below) Other Immunologic History: Patient has questionable allergies with lip/tongue/ throat swelling. Oncologic (Cancer) History: Reports: None Dermatologic History: Reports: Angiodema, Other (See Below) Other Dermatologic History: head laceration - Infectious Disease History Infectious Disease History: Reports: None - Past Surgical History Head Surgeries/Procedures: Reports: None HEENT Surgical History: Reports: None Respiratory Surgical History: Reports: None Social & Family History - Family History Family Medical History: Noncontributory - Caffeine Use Caffeine Use: Reports: Coffee Other Caffeine Use: 24 cups of coffee a day ED ROS ENT - Review of Systems Review Of Systems: See Below Constitutional: Reports: No Symptoms HEENT: Reports: Other (tongue swelling ). Denies: Throat Swelling Respiratory: Reports: No Symptoms Cardiovascular: Reports: No Symptoms Endocrine: Reports: No Symptoms GI/Abdominal: Reports: No Symptoms : Reports: No Symptoms Musculoskeletal: Reports: No Symptoms Skin: Reports: No Symptoms Neurological: Reports: No Symptoms Psychiatric: Reports: No Symptoms Hematologic/Lymphatic: Reports: No Symptoms Immunologic: Reports: No Symptoms ED EXAM, ENT - Physical Exam Exam: See Below Exam Limited By: No Limitations General Appearance: Alert, WD/WN, No Apparent Distress Eye Exam: Bilateral Eye: PERRL Ears: Normal External Exam, Normal Canal, Hearing Grossly Normal, Normal TMs Nose: Normal Inspection, Normal Mucousa, No Blood Mouth/Throat: Normal Gums, Normal Lips, Normal Teeth, Tongue Swelling. No: Throat Swelling, Tonsillar Erythema, Tonsillar Exudates, Tonsillar Swelling, Trismus, Uvular Deviation, Uvular Edema Head: Atraumatic, Normocephalic Neck: Normal Inspection, Supple, Non-Tender, Full Range of Motion Respiratory/Chest: No Respiratory Distress, Lungs Clear, Normal Breath Sounds, No Accessory Muscle Use, Chest Non-Tender Cardiovascular: Normal Peripheral Pulses, Regular Rate, Rhythm, No Edema, No Gallop, No JVD, No Murmur, No Rub GI/Abdominal: Normal Bowel Sounds, Soft, Non-Tender, No Organomegaly, No Distention, No Abnormal Bruit, No Mass Back: Normal Inspection, Full Range of Motion Extremities: Normal Inspection, Normal Range of Motion, Non-Tender, No Pedal Edema, Normal Capillary Refill Neurological: Alert, Oriented, CN II-XII Intact, Normal Cognition, Normal Gait, Normal Reflexes, No Motor/Sensory Deficits Psychiatric: Normal Affect, Normal Mood Skin: Warm, Dry, Intact, Normal Color, No Rash Lymphatic: No Adenopathy Course - Vital Signs Last Recorded V/S: Last Vital Signs Temp 36.8 C 09/21/19 09:30 Pulse 69 09/21/19 09:30 Resp 18 09/21/19 09:30 BP 147/85 H 09/21/19 09:30 Pulse Ox 95 09/21/19 09:30 - Orders/Labs/Meds Orders: Active Orders 24 hr Category Date Time Status Peripheral IV Care [RC] . DIRECTED Care 09/21/19 09:29 Active Sodium Chloride 0.9% [Saline Flush] Med 09/21/19 09:28 Active 10 ml FLUSH Q8HR PRN Peripheral IV Insertion Adult [OM.PC] Routine Oth 09/21/19 09:28 Ordered Medication Orders Sodium Chloride (Saline Flush) 10 ml FLUSH Q8HR PRN PRN Reason: keep vein open Meds: Medications Generic Name Dose Route Start Last Admin Trade Name Freq PRN Reason Stop Dose Admin Sodium Chloride 10 ml 09/21/19 09:28 Saline Flush FLUSH Q8HR PRN keep vein open Discontinued Medications Generic Name Dose Route Start Last Admin Trade Name Freq PRN Reason Stop Dose Admin Diphenhydramine HCl 50 mg 09/21/19 09:28 09/21/19 10:15 Benadryl IVPUSH 09/21/19 09:29 50 mg ONETIME ONE Administration Famotidine 20 mg 09/21/19 09:28 09/21/19 10:10 Pepcid IVPUSH 09/21/19 09:29 20 mg ONETIME ONE Administration Sodium Chloride 1,000 mls @ 999 mls/hr 09/21/19 09:28 09/21/19 09:55 Normal Saline IV 09/21/19 10:28 999 mls/hr .BOLUS ONE Administration Methylprednisolone Sodium Succinate 125 mg 09/21/19 09:28 09/21/19 10:05 Solu-Medrol IVPUSH 09/21/19 09:29 125 mg ONETIME ONE Administration - Radiology Interpretation Free Text/Narrative:: tongue swelling improved. Pt denies any dyspnea, dysphagia, trismus, drooling, or fullness to back of throat. No lip involvement at this time. Pt instructed to use epi pen if symptoms progress and call EMS immediately. Pt agreeable and voices understanding of plan of care Departure - Departure Time of Disposition: 10:40 Disposition: Home, Self-Care 01 Condition: Good Clinical Impression: Angio-edema Qualifiers: Encounter type: sequela Qualified Code(s): T78.3XXS - Angioneurotic edema, sequela - Discharge Information Prescriptions: Famotidine [Pepcid] 20 mg PO BID #10 tab predniSONE [Prednisone] 20 mg PO DAILY #15 tablet Instructions: Angioedema, [id number] Referrals: Stephanie Wheat PA-C [Primary Care Provider] - Forms: ED Department Discharge Additional Instructions: 1. discharge home 2. prednisone 60mg daily x 5 days 3. continue Benadryl 50mg every 6 hour x 5 days 4. Pepcid 20mg daily x 5 days 5. follow up with immunology/dispute specialist 6. return to ER for worsening symptoms (shortness of breath, difficulty swallowing, worsening swelling 7. follow up with PCP for referral to specialist Sepsis Event Note - Focused Exam Vital Signs: Vital Signs Temp Pulse Resp BP Pulse Ox 09/21/19 09:30 36.8 C 69 18 147/85 H 95 Date Exam was Performed: 09/21/19 Time Exam was Performed: 10:30 - My Orders Last 24 Hours: My Active Orders 09/21/19 09:28 Sodium Chloride 0.9% [Saline Flush] 10 ml FLUSH Q8HR PRN Peripheral IV Insertion Adult [OM.PC] Routine 09/21/19 09:29 Peripheral IV Care [RC] . DIRECTED - Assessment/Plan Last 24 Hours: My Active Orders 09/21/19 09:28 Sodium Chloride 0.9% [Saline Flush] 10 ml FLUSH Q8HR PRN Peripheral IV Insertion Adult [OM.PC] Routine 09/21/19 09:29 Peripheral IV Care [RC] . DIRECTED Assessment:: 1. Idiopathic angioedema of tongue Plan: 1. discharge home 2. prednisone 60mg daily x 5 days 3. continue Benadryl 50mg every 6 hour x 5 days 4. Pepcid 20mg daily x 5 days 5. follow up with immunology/dispute specialist 6. return to ER for worsening symptoms (shortness of breath, difficulty swallowing, worsening swelling 7. follow up with PCP for referral to specialist
[2019-09-21 09:35] VITALS: BP 147/85; PULSE 69
== END 2019-09-21 11:10 | disposition home or self-care (01) ==
LOC: KA.ED 09:08
DX: T78.3XXS Angioneurotic edema, sequela (principal); Z88.0 Allergy status to penicillin; Z79.899 Other long term (current) drug therapy; Z79.82 Long term (current) use of aspirin
CPT/HCPCS: 96361; 96374; 96375; 99283-25; J1200; J2930; J3490; J7030